=== PATIENT | female | born 1950 | race Caucasian/White ===

== ENCOUNTER 2017-12-14 14:11 | Outpatient (CLI) | payer OTHER | END 2017-12-14 14:12 | disposition home or self-care (01) | LOC: BICMAMMO 14:11 | PROVIDERS: ATTEND Physician Assistant | DX: Z12.31 Encounter for screening mammogram for malignant neoplasm of breast (principal); M85.89 Other specified disorders of bone density and structure, multiple sites; Z80.3 Family history of malignant neoplasm of breast | CPT/HCPCS: 77063; 77067; 77080 ==

== ENCOUNTER 2019-08-20 05:54 | Observation (INO) | payer BC, OTHER ==
[2019-08-20] MEDS ORDERED: Metoclopramide 10 MG/10 ML UDCUP ONE (06:11)
[2019-08-20] MEDS ORDERED: Metoprolol Tartrate 5 MG/5 ML VIAL ONE (06:11)
[2019-08-20] MEDS ORDERED: Aspirin Chewable 81 MG TAB ONE (06:11)
[2019-08-20 06:18] LABS: #Basophils 0.1 thou/uL (0.0-0.2); #Eosinphils 0.3 thou/uL (0.0-0.7); #Lymphocytes 1.7 thou/uL (1.20-3.40); #Monocytes 0.7 thou/uL (0.11-0.59); #Neutrophils 8.1 thou/uL (1.40-6.50); %Basophils 0.8 % (0.0-1.0); %Eosinophils 2.9 % (0.0-10.0); %Lymphocytes 15.8 % (21.0-51.0); %Monocytes 6.3 % (0.0-10.0); %Neutrophils 74.2 % (42.0-75.0); Hemoglobin 15.3 g/dL (12.0-16.0); Mean Corpuscular Volume 97.1 fL (78.0-98.0); Mean Platelet Volume 7.6 fL (7.4-10.4); Platelet Count 318 thou/uL (130-400); RBC Distribution Width 10.9 % (11.5-14.5); Red Blood Cell (RBC) Count 4.64 mill/uL (4.20-5.40); White Blood Cell (WBC) Count 10.8 thou/uL (4.8-10.8)
[2019-08-20 06:40] LABS: ALT (SGPT) 17 U/L (8-55); AST (SGOT) 24 U/L (5-34); Albumin 4.5 g/dL (3.4-4.8); Alkaline Phosphatase 60 U/L (40-110); Anion Gap 14 mmol/L (10-20); BUN (Urea Nitrogen) 21 mg/dL (9.8-20.1); Bilirubin, Total 0.6 mg/dL (0.2-1.2); CK (CPK) 87 U/L (29-168); Calc. Creatinine Clearance 0 mL/min (70-130); Calcium 9.6 mg/dL (7.8-10.44); Carbon Dioxide 23 mmol/L (23-31); Chloride 106 mmol/L (98-107); Estimated GFR-MDRD 57; Globulin 2.8 g/dL (2.4-3.5); Glucose 98 mg/dL (80-115); Lipase 46 U/L (8-78); Potassium 3.4 mmol/L (3.5-5.1); Protein, Total 7.3 g/dL (6.0-8.3); Sodium 140 mmol/L (136-145)
--- NOTE | 2019-08-20 07:34 | RAD ---
EXAM: Single view of the chest HISTORY: Heart palpitations and dyspnea COMPARISON: None FINDINGS: Single view of the chest shows a normal sized cardiomediastinal silhouette. Atheroscleroti c calcifications are seen in the aorta. There is no evidence of consolidation, mass, or pleural effusion. The bones are unremarkable. IMPRESSION: No evidence of acute cardiopulmonary disease
[2019-08-20] MEDS ORDERED: Ondansetron ODT 4 MG TAB PO PRN ×2 (08:46→08:54)
[2019-08-20] MEDS ORDERED: Ondansetron PF 4 MG/2 ML Vial IVP PRN ×2 (08:46→08:54)
[2019-08-20] MEDS ORDERED: Artificial Tears 18 DROP/0.9 ML EA EYE PRN (08:54)
[2019-08-20] MEDS ORDERED: Senokot S 8.6-50 MG TAB PO PRN (08:54)
[2019-08-20] MEDS ORDERED: Nitroglycerin 0.4 MG TAB (25 Tab Bottle) SL PRN (08:54)
[2019-08-20] MEDS ORDERED: Zolpidem Tartrate 5 MG TAB PO PRN (08:54)
[2019-08-20] MEDS ORDERED: HYDROcodone/Acetaminophen 5/325 mg Tablet PO PRN (08:54)
[2019-08-20] MEDS ORDERED: Bisacodyl 10 MG SUPP PR PRN (08:54)
[2019-08-20] MEDS ORDERED: Loperamide HCl 2 MG CAP PO PRN (08:54)
[2019-08-20] MEDS ORDERED: hydrALAZINE 20 MG/ML VIAL SLOW IVP PRN (08:54)
[2019-08-20] MEDS ORDERED: Sodium Chloride 0.65% Nasal 44 ML BOT EA NARE PRN (08:54)
[2019-08-20] MEDS ORDERED: Acetaminophen 325 MG TAB PO PRN (08:54)
[2019-08-20] MEDS ORDERED: Cepastat Lozenges 1 LOZ PO PRN (08:54)
[2019-08-20] MEDS ORDERED: Calcium Carbonate 500 MG ChewTAB PO PRN (08:54)
[2019-08-20] MEDS ORDERED: Loratadine 10 MG TAB PO PRN (08:54)
[2019-08-20] MEDS ORDERED: Diabetic Tussin 200 MG/10 ML UDCUP PO PRN (08:54)
[2019-08-20] MEDS: Metoprolol Tartrate 25 MG TAB PO SCH ×2 (09:32→22:19)
[2019-08-20 09:48] LABS: Troponin I 0.047 ng/mL (< 0.028)
[2019-08-20 09:53] VITALS: BMI 21.9
[2019-08-20] MEDS ORDERED: Potassium Chloride 20 MEQ TAB PO SCH (10:00)
--- NOTE | 2019-08-20 10:30 | HP ---
PRIMARY CARE PHYSICIAN: Arabella Almanzar. REASON FOR ADMISSION: SVT. HISTORY OF PRESENT ILLNESS: A 69-year-old female who has past medical history of COPD, who presented to emergency room with palpitation. The patient reports that she is taking caffeine periodically because she has to drive long hours and that is why she is taking intermittently and as-needed basis caffeine for a long period of time. Her last caffeine tablet she took yesterday morning as well as around noon time. The patient was experiencing palpitation and subsequently she was googling her symptoms and she found that she could have a heart attack and that is why she called paramedics. Paramedics found her in SVT and she was given one dose of adenosine and she converted to sinus rhythm. Initially as per paramedics, her heart rate was 170 and it was consistent with SVT. That was resolved when she arrived to emergency room. In the emergency room, the patient was completely asymptomatic. When she had SVT at that time she was feeling palpitation and chest discomfort and bilateral lower extremity weakness that was also improved after conversion of SVT. In our emergency room, the patient was given aspirin and metoprolol and subsequently she was admitted to telemetry floor for observation. When I saw this patient at that time she was in sinus rhythm and she was completely asymptomatic. The patient reports that she had stress test done [address] Beard. REVIEW OF SYSTEMS: CONSTITUTIONAL: Negative for weight loss or gain, ability to conduct usual activities. SKIN: Negative for rash, itching. EYES: Negative for double vision, pain. ENT/MOUTH: Negative for nose bleeding, neck stiffness, pain, tenderness. CARDIOVASCULAR: Negative for palpitations, dyspnea on exertion, orthopnea. RESPIRATORY: Negative for shortness of breath, wheezing, cough, hemoptysis, fever or night sweats. GASTROINTESTINAL: Negative for poor appetite, abdominal pain, heartburn, nausea, vomiting, constipation, or diarrhea. GENITOURINARY: Negative for urgency, frequency, dysuria, nocturia. MUSCULOSKELETAL: Negative for pain, swelling. NEUROLOGIC/PSYCHIATRIC: Negative for anxiety, depression. ALLERGY/IMMUNOLOGIC: Negative for skin rash, bleeding tendency. Please see my HPI for pertinent positives and negatives. All other review of systems reviewed and negative except as mentioned in HPI. PAST MEDICAL HISTORY: COPD, intermittent palpitation. PAST SURGICAL HISTORY: Tonsillectomy tubal ligation. PAST PSYCHIATRIC HISTORY: Reviewed and negative. SOCIAL HISTORY: The patient drinks alcohol every week. She abuses marijuana and methamphetamine. She also smokes about 1 pack per day and she also takes caffeine. ALLERGIES: NO KNOWN DRUG ALLERGIES. CURRENT HOME MEDICATION: Crestor 20 mg daily, calcium with vitamin D 1 tablet daily, caffeine tablet as needed basis. EMERGENCY ROOM COURSE: Paramedics gave her adenosine 6 mg and the ER physician gave metoprolol 5 mg and aspirin. PHYSICAL EXAMINATION: VITAL SIGNS: Currently blood pressure 136/78, pulse 70, respiratory rate 18, temperature 98.2 saturation 95% on room air. Weight 50.8 kg. GENERAL: The patient is currently alert and oriented x3. HEENT: Head; normocephalic, atraumatic. NECK: No JVD. No thyromegaly. No carotid bruit. LUNGS: Clear to auscultation without any rhonchi or rales. CARDIAC: S1 and S2 regular. No murmur. No gallop. No rub. ABDOMEN: Soft, nontender, nondistended. No organomegaly. No mass. EXTREMITIES: No edema. Good distal pulsation. No calf tenderness. SKIN: No skin rash. HEMATOLOGICAL: No lymphadenopathy. NEUROLOGIC: Nonfocal examination. SIGNIFICANT LABORATORY DATA: The patient has normal sinus rhythm without any ischemic changes. Chest x-ray based on my review, COPD changes without any acute process. CBC: WBC 10.8, hemoglobin 15.3 platelet 318. D-dimer less than 0.27. BMP: Sodium 140, potassium 3.4, chloride 106, carbon dioxide 23, BUN 21, creatinine 0.97, glucose 98, calcium 9.6. LFT: AST 24, ALT 17, alkaline phosphatase 60, albumin 4.5. Troponin 0.027 and then 0.047. BNP 19.4, lipase 46. Current EKG showing sinus rhythm without any ischemic changes. Chest x-ray based on my review, COPD changes. ASSESSMENT AND PLAN: 1. Paroxysmal supraventricular tachycardia. 2. Palpitation due to problem #1. 3. Chronic obstructive pulmonary disease. 4. Tobacco abuse disorder. 5. History of marijuana, methamphetamine abuse. 6. Hypokalemia. 7. Demand ischemia secondary to SVT. PLAN: Observation to telemetry floor. Cardiology consultation. The patient may need electrophysiologic evaluation. We will start metoprolol 25 mg twice daily, aspirin 325 mg p.o. daily. Serial cardiac enzymes x3. Echocardiography to assess EF and other structural abnormality. We will check urine drug screen to rule out any ongoing drug abuse that can contribute to her SVT. We will replace potassium chloride 40 mEq p.o. one time dose and we will check thyroid function test with TSH. We will observe 24 hours and if the patient does not have any further episodes of SVT, then we will consider discharging her home tomorrow depending upon Cardiology and Electrophysiology recommendation. We will check lipid profile tomorrow. Healthy lifestyle measure discussed with the patient and discussed with the patient about avoidance of smoking as well as avoidance of caffeine products. DVT prophylaxis not needed because we are expecting discharge in 24 hours. GI prophylaxis Pepcid 20 mg p.o. b.i.d. CODE STATUS: The patient is full code. The patient does not have any surrogate decision maker. Job ID: [id number]
[2019-08-20] MEDS: Aspirin 325 mg Enteric Coated Tablet PO SCH (10:32)
[2019-08-20 11:38] LABS: Amphetamine Not Detected (NotDetected); Barbiturates Screen Not Detected (NotDetected); Benzodiazepine Screen Not Detected (NotDetected); Cocaine Metabolite Screen Not Detected (NotDetected); Medtox Control Line Valid? VALID (VALID); Medtox Reader # READER 1; Methadone Not Detected (NotDetected); Methamphetamine Not Detected (NotDetected); Opiate Screen Not Detected (NotDetected); Oxycodone Screen Not Detected (NotDetected); Phencyclidine (PCP) Not Detected (NotDetected); THC/Cannabinoid Screen Not Detected (NotDetected); Tricyclic Screen Not Detected (NotDetected)
[2019-08-20 12:36] LABS: Troponin I 0.056 ng/mL (< 0.028)
--- NOTE | 2019-08-20 16:11 | CON ---
DATE OF CONSULTATION: HISTORY OF PRESENT ILLNESS: The patient is 69-year-old woman, who presented for evaluation of palpitations. The patient has no previous cardiac history. She states she underwent a cardiac evaluation three years ago by Dr. Beard, which was apparently unremarkable. The patient states she has had a long history of palpitations. Once or twice a year, she will feel her heart is palpating. Yesterday, the patient had the exact same symptoms, but it was prolonged. The patient also felt extremely weak and nauseated. The patient has several cardiac risk factors including dyslipidemia, family history of coronary artery disease, and long history of tobacco abuse. PAST MEDICAL HISTORY: 1. COPD. 2. Dyslipidemia. PAST SURGICAL HISTORY: Tonsillectomy and she has had operation for tubal repair. SOCIAL HISTORY: Long history of tobacco abuse. ALLERGIES: NO KNOWN DRUG ALLERGIES. FAMILY HISTORY: Positive family history of heart disease. REVIEW OF SYSTEMS: Ten-point system unremarkable. PHYSICAL EXAMINATION: GENERAL: Well-developed woman, in no acute distress. VITAL SIGNS: Blood pressure 149/69. NECK: No jugular venous distention. No carotid bruits. LUNGS: Clear to auscultation. HEART: Regular rate and rhythm. Normal S1 and S2. No murmurs. ABDOMEN: Nondistended. EXTREMITIES: Show no edema. VASCULAR: Radial pulses 2+. LABORATORY DATA: Sodium 140, potassium 3.4, chloride 106, bicarbonate 23, BUN 21, and creatinine 0.97. Troponin was 0.027. White blood cell count is 10.8, hemoglobin 15.3, hematocrit 45.0, and platelets 318. EKG revealed supraventricular tachycardia. Follow up EKG revealed normal sinus rhythm with a normal ECG. IMPRESSION: 1. Supraventricular tachycardia. 2. Chronic obstructive pulmonary disease. 3. Dyslipidemia. 4. Tobacco abuse. PLAN: This patient presented with SVT that responded to adenosine. EP consultation had been obtained. An echocardiogram has been ordered. We will follow this patient with you through her hospitalization. Job ID: [id number] [facility]
[2019-08-20] MEDS: Famotidine 20 MG TAB PO SCH (22:19)
[2019-08-21 05:04] LABS: #Basophils 0.1 thou/uL (0.0-0.2); #Eosinphils 0.5 thou/uL (0.0-0.7); #Lymphocytes 3.1 thou/uL (1.20-3.40); #Monocytes 0.6 thou/uL (0.11-0.59); #Neutrophils 4.4 thou/uL (1.40-6.50); %Basophils 0.8 % (0.0-1.0); %Eosinophils 5.8 % (0.0-10.0); %Lymphocytes 35.7 % (21.0-51.0); %Monocytes 7.2 % (0.0-10.0); %Neutrophils 50.5 % (42.0-75.0); Hemoglobin 14.4 g/dL (12.0-16.0); Mean Corpuscular HGB CONC 33.6 g/dL (32.0-36.0); Mean Corpuscular Hemoglobin 32.6 pg (27.0-31.0); Mean Corpuscular Volume 96.9 fL (78.0-98.0); Mean Platelet Volume 7.9 fL (7.4-10.4); Platelet Count 309 thou/uL (130-400); RBC Distribution Width 10.8 % (11.5-14.5); Red Blood Cell (RBC) Count 4.43 mill/uL (4.20-5.40); White Blood Cell (WBC) Count 8.6 thou/uL (4.8-10.8)
[2019-08-21 05:25] LABS: Anion Gap 11 mmol/L (10-20); BUN (Urea Nitrogen) 16 mg/dL (9.8-20.1); Calc. Creatinine Clearance 63 mL/min (70-130); Calcium 8.7 mg/dL (7.8-10.44); Carbon Dioxide 22 mmol/L (23-31); Cardiac Risk 2.9 (Less than 4.5); Chloride 110 mmol/L (98-107); Cholesterol 152 mg/dl (< 200 Desired); Estimated GFR-MDRD 78; Glucose 100 mg/dL (80-115); HDL Cholesterol 53 mg/dL (>60 Neg Risk); LDL Cholesterol, Calculated 84 mg/dL; Potassium 4.2 mmol/L (3.5-5.1); Sodium 139 mmol/L (136-145); Triglycerides 73 mg/dL (Less than 150)
[2019-08-21 08:12] VITALS: TEMP 98
--- NOTE | 2019-08-21 08:29 | CON ---
DATE OF CONSULTATION: 08/20/2019 HISTORY OF PRESENT ILLNESS: I am seeing Ms. Valdez at our [facility] Telemetry Floor as an electrophysiology consult. Her problems are: 1. Recurrent supraventricular tachycardia with EKG suggestive of narrow complex SVT, rate of 150 beats per minute with a short VA time. 2. History of COPD, smoking. 3. History of unremarkable cardiac evaluation by Dr. Beard in the past. 4. Dyslipidemia. ALLERGIES: NONE NOTED. MEDICATIONS: At home, rosuvastatin. SUBJECTIVE: Ms. Valdez returning for recurrent palpitations. She has been bothered by intermittent rapid heartbeats for last 10 years, which is getting more frequently recently. This current episode was severe enough her to call the ambulance crew, which did EKGs and gave her adenosine which terminated the arrhythmia. She did not pass episode, but had some nausea and dizziness. No chest pains. No PND or orthopnea. No stroke-like symptoms. No neurological deficits and rest of 12-point system otherwise unremarkable. PAST MEDICAL HISTORY: As above. She has history of tonsillectomy and tubal ligation. SOCIAL HISTORY: The patient drinks alcohol every week. Did use marijuana and methamphetamine. Smokes one pack per day of cigarettes a day. FAMILY HISTORY: Noncontributory. OBJECTIVE: VITAL SIGNS: Blood pressure is 136/63, heart rate 68, respiratory rate 14, temperature 98.4 degrees Fahrenheit. GENERAL: Alert and oriented woman, in no apparent distress. NECK: Supple. Jugular veins not distended. CHEST: Coarse without crackles. HEART: Sounds are regular to rate and rhythm. No murmur or gallop. ABDOMEN: Benign. Bowel sounds positive. EXTREMITIES: Lower extremity without edema, clubbing, or cyanosis. Pulses are adequate. NEUROLOGICAL: The patient is nonfocal. MUSCULOSKELETAL: No joint swelling or deformity. SKIN: Without rash. DATABASE: EKGs via ambulance reviewed revealing a narrow complex tachycardia, rate about 150 beats per minute, 'P waves' following QRS in 60 milliseconds. LABORATORY DATA: White cell count is 10.8, hemoglobin 15.3, platelet count is 318. Sodium 140, potassium 3.4, BUN is 21, creatinine 0.97. D-dimer is less than 0.27. Troponin levels 0.027, 0.047, 0.056. ASSESSMENT AND PLAN: Ms. 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 Also AV reentry tachycardia and atrial tachycardia is part of the differential diagnosis list. I discussed the mechanism of her supraventricular tachycardia, potential treatment options were discussed. We detailed the ablation procedure and the risks associated with that. She understands the chance of infection, bleeding, bradycardia requiring pacing, tamponade requiring chest tube placement or surgical correction. Recurrence is also discussed. She understands, willing to proceed. We will schedule her for a near date. Thank you again for allowing me to participate in the care of this patient. Job ID: [id number] [facility] CENTERMary Beth
[2019-08-21] MEDS ORDERED: Phenylephrine HCL 10 MG/ML VIAL ONE (10:28)
[2019-08-21] MEDS ORDERED: Propofol 500 MG/50 ML VIAL ONE (10:28)
[2019-08-21] MEDS ORDERED: Heparin (Artline) 500 ML ONE (11:05)
[2019-08-21] MEDS ORDERED: Isoproterenol 0.2 MG/1 ML AMP ONE (11:07)
[2019-08-21] MEDS ORDERED: Heparin 10,000 UNITS/1 ML VIAL ONE (11:07)
[2019-08-21] MEDS ORDERED: Midazolam HCl 2 mg/2 ml Vial ONE (12:18)
[2019-08-21] MEDS: Famotidine 20 MG TAB PO SCH (13:25)
[2019-08-21] MEDS ORDERED: Ondansetron HCl/PF 4 MG/2 ML Vial IVP PRN (13:39)
[2019-08-21] MEDS ORDERED: Promethazine HCl 25 MG/ML VIAL SLOW IVP PRN (13:39)
[2019-08-21] MEDS ORDERED: Meperidine HCl/PF 25 MG/ML VIAL SLOW IVP PRN (13:39)
[2019-08-21] MEDS ORDERED: Fentanyl 100 MCG/2 ML VIAL ONE (13:43)
--- NOTE | 2019-08-21 14:07 | OP ---
DATE OF PROCEDURE: 08/21/2019 PROCEDURES PERFORMED: Electrophysiology study and radiofrequency ablation. REASON FOR PROCEDURE: Ms. Valdez is a 69-year-old woman with history of recurrent palpitations, not really documented narrow complex SVT terminated with adenosine. Short RP intervals are noted less than 60 milliseconds on EKG obtained during SVT. DESCRIPTION OF PROCEDURE: The patient received propofol by Anesthesia specialist for deep sedation. The left and right femoral venous area was prepped, draped, and anesthetized using subcutaneous lidocaine and under ultrasound guidance, both femoral veins were cannulated. On the left side, a 6 and 8-[place]izen [place] sheath was used to advance an octapolar and decapolar catheters in the right atrium, right ventricle, His bundle, and CS position. Pacing mapping and recording were performed in each location including pacing the left atrium via the CS. The following findings were noted. At baseline, rhythm was sinus rhythm at 922 milliseconds, OH 164 milliseconds, QRS 59 milliseconds, QT 434 milliseconds, AH 92 milliseconds, HV 35 milliseconds. The AV Wenckebach cycle length was noted to be at 380 milliseconds and retrograde Wenckebach cycle length was 460 milliseconds. Atrial ERP was 600/280 milliseconds with clear dual AV kely physiology was present. With VA pacing, concentric retrograde VA conduction was seen. The Isuprel was administered at this point with burst atrial pacing. We were able to induce a narrow complex SVT about 320 milliseconds, which had a very short VA timing similar to the presenting tachycardia at less than 60 milliseconds. The burst ventricular pacing attempted, but promptly terminated the arrhythmia in each try. The AV kely reentrant tachycardia was diagnosed and we proceeded with slow pathway modification. Via the right femoral venous access 8-[place]izen [place] sheath, a 4 mm ablation catheter was advanced to the right atrium and 3D map of the right atrium, CS position and His bundle was obtained. Radiofrequency ablation was delivered at 40 cruz degree cut off, a total of 1 minute in duration, single lesion delivered at this position. During the ablation, junctional beats were seen, no VA block was observed. After this, the induction sequence was repeated. Isuprel was again readministered and despite of this, no SVT was reinducible. With extrastimuli testing, the atrial ERP was 600/240 milliseconds on Isuprel and occasional jump and echo beats were still observed. Up to 6 mcg of Isuprel and burst atrial pacing did not reinduce arrhythmias. The Wenckebach cycle length is down to 250 milliseconds on Isuprel. HV interval did not change the procedure. Cardiac silhouette remained the same. The catheter was pulled in the golf course laborer. Sheaths were removed, and hemostasis was achieved with manual pressure. CONCLUSION: 1. 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 2. Slow pathway modification eliminating inducibility of the AV kely reentrant tachycardia. 3. Normal AV kely and sinus kely function, also normal His-Purkinje function pre and post procedure. 4. No evidence of accessory pathway with prior history of pacing and ventricular pacing. PLAN: Monitor for recurrent arrhythmias. Routine followup. Job ID: [id number]
[2019-08-21] MEDS: Metoprolol Tartrate 25 MG TAB PO SCH (14:59)
[2019-08-21 15:16] VITALS: BP 130/66
--- NOTE | 2019-08-21 16:31 | PDOC.HOSPP ---
- Subjective Encounter Date: 08/21/19 Encounter Time: 16:30 Subjective: f/u for SVT with EP study and RFA today. No new complaints. - Objective Vital Signs & Weight: Vital Signs (12 hours) Temp Pulse Resp BP Pulse Ox 08/21/19 15:10 98.0 F 57 L 16 130/66 95 08/21/19 07:31 98.0 F 59 L 16 119/58 L 93 L Weight Weight 120 lb I&O: 08/20/19 08/21/19 08/22/19 06:59 06:59 06:59 Intake Total 1200 Output Total 300 Balance 900 Result Diagrams: 08/21/19 04:33 08/21/19 04:33 Additional Labs: Laboratory Tests 08/20/19 08/20/19 08/20/19 06:10 06:10 09:00 Troponin I 0.027 B-Natriuretic Peptide 19.4 TSH 3rd Generation 2.2132 08/20/19 08/20/19 09:05 11:56 Troponin I 0.047 H 0.056 H B-Natriuretic Peptide TSH 3rd Generation Radiology Reviewed by me: Yes (Echo - EF 55-60%, mild MR/TR) EKG Reviewed by me: Yes (Tele - SR) Hospitalist ROS - Medication Medications: Active Medications Generic Name Dose Route Start Last Admin Trade Name Joséq PRN Reason Stop Dose Admin Aspirin 325 mg 08/20/19 09:00 08/20/19 10:32 Ecotrin PO Not Given DAILY [facility] Famotidine 20 mg 08/20/19 21:00 08/21/19 13:25 Pepcid PO Not Given BID [facility] Metoprolol Tartrate 25 mg 08/20/19 09:00 08/21/19 14:59 Lopressor PO Not Given BID CARISSA - Exam General Appearance: NAD, awake alert Eye: PERRL, anicteric sclera ENT: normocephalic atraumatic, no oropharyngeal lesions Neck: supple, symmetric, no JVD, no thyromegaly Heart: RRR, no murmur, no gallops, no rubs, normal peripheral pulses Respiratory: CTAB, no wheezes, no rales, no ronchi, normal chest expansion Gastrointestinal: soft, non-tender, non-distended, normal bowel sounds, no palpable masses Extremities: no cyanosis, no clubbing, no edema Skin: normal turgor, no lesions Neurological: cranial nerve grossly intact, no new deficit Musculoskeletal: normal tone, normal strength Psychiatric: normal affect, A&O x 3 Hosp A/P (1) SVT (supraventricular tachycardia) Code(s): I47.1 - SUPRAVENTRICULAR TACHYCARDIA Status: Acute Plan: s/p EP study and RFA, continue Metoprolol 25mg BID (2) Demand ischemia of myocardium Code(s): I24.8 - OTHER FORMS OF ACUTE ISCHEMIC HEART DISEASE Status: Acute Plan: Secondary to #1, continue ASA (3) Hypokalemia Code(s): E87.6 - HYPOKALEMIA Status: Acute Plan: Resolving (4) COPD (chronic obstructive pulmonary disease) Status: Chronic Plan: No exacerbation, tobacco cessation counseling (5) Polysubstance abuse Code(s): F19.10 - OTHER PSYCHOACTIVE SUBSTANCE ABUSE, UNCOMPLICATED Status: Chronic Plan: Cessation resources - Plan out of bed/ambulate, DVT proph w/SCDs Stable currently Continue Metoprolol 25mg BID Continue ASA 81mg daily 2D echo pending Likely home in 24h
[2019-08-21] MEDS: Aspirin 325 mg Enteric Coated Tablet PO SCH (17:46)
--- NOTE | 2019-08-21 21:13 | DIS ---
DATE OF ADMISSION: 08/20/2019 DATE OF DISCHARGE: 08/21/2019 DISCHARGE DIAGNOSES: 1. Paroxysmal supraventricular tachycardia, resolved, status post radiofrequency ablation. 2. Demand ischemia of the myocardium secondary to #1. 3. Hypokalemia, resolved. 4. Chronic obstructive pulmonary disease without exacerbation. 5. Polysubstance abuse. CONSULTATIONS: Dr. Ordaz with Electrophysiology Service. PERTINENT LAB AND X-RAY FINDINGS: Potassium ranged between 3.4 to 4.2, troponin I ranged between 0.027 to 0.056. BNP 19.4, TSH 2.21. Total cholesterol 152, triglyceride 73, HDL 53, LDL 84. Urine drug screen dated 08/20/2019, negative. IMAGING: Portable chest x-ray dated 08/20/2019 showed no acute cardiopulmonary process. 2D transthoracic echocardiogram dated 08/20/2019 showed ejection fraction of 55% to 60%. Mild mitral and tricuspid valve regurgitation. HOSPITAL COURSE: The patient was observed on the telemetry unit after presenting with paroxysmal supraventricular tachycardia, initially managed with IV adenosine with conversion to sinus mechanism. The patient's heart rate was initially in the 170s consistent with supraventricular tachycardia, stabilizing after arriving in the emergency room. The patient was evaluated by the Electrophysiology Service, undergoing EP evaluation including radiofrequency ablation on 08/21/2019. The patient continued on metoprolol 25 mg b.i.d. and aspirin 81 mg daily. Current recommendations are for general medical management and to avoid exacerbating influence to include caffeine and substance abuse. I have examined the patient at the time of discharge and discussed followup instructions. The patient verbalized understanding and agreement ready for discharge on 08/21/2019. DISCHARGE MEDICATIONS: 1. Crestor 20 mg p.o. at bedtime. 2. Enteric-coated aspirin 81 mg p.o. daily. 3. Lopressor 25 mg p.o. b.i.d. FOLLOWUP: The patient followup with her primary care provider Leticia Almanzar. CONDITION ON DISCHARGE: Stable. ACTIVITY: Ad-chris. DIET: Heart healthy. CODE STATUS: Full. DISPOSITION: To home, 08/21/2019. Job ID: [id number]
== END 2019-08-21 18:00 | disposition home or self-care (01) ==
LOC: ERS 05:54 → 2SW 08:51
PROVIDERS: ADMIT Internal Medicine; ATTEND Internal Medicine
PROC: 4A023FZ Measurement of Cardiac Rhythm, Percutaneous Approach (ICD-10-PCS; principal; 2019-08-21)
PROC: 4A0234Z Measurement of Cardiac Electrical Activity, Percutaneous Approach (ICD-10-PCS; 2019-08-21)
PROC: 02583ZZ Destruction of Conduction Mechanism, Percutaneous Approach (ICD-10-PCS; 2019-08-21)
DX: I47.1 Supraventricular tachycardia (principal); E87.6 Hypokalemia; J44.9 Chronic obstructive pulmonary disease, unspecified; F17.210 Nicotine dependence, cigarettes, uncomplicated; F12.11 Cannabis abuse, in remission; Z79.83 Long term (current) use of bisphosphonates; Z79.899 Other long term (current) drug therapy
CPT/HCPCS: 36415; 71045; 76942; 80048; 80053; 80061; 80306; 82550; 83690; 83880; 84443; 84484; 85025; 85379; 93005; 93010; 93306; 93613; 93623; 93653; 96374; C1730; C1769; G0378; J1644; J2250; J2370; J2704; J3010

== ENCOUNTER 2021-07-12 10:21 | Outpatient (CLI) | payer BC, MEDICARE | END 2021-07-12 10:22 | disposition home or self-care (01) | LOC: RAD-FRANK 10:21 | PROVIDERS: ATTEND Nurse Practitioner Family | DX: Z00.01 Encounter for general adult medical examination with abnormal findings (principal); M89.8X2 Other specified disorders of bone, upper arm ==